=== PATIENT | female | born 1970 | race Caucasian/White ===

== ENCOUNTER 2022-09-28 05:47 | Emergency (ER) | payer OTHER, SELFPAY ==
--- NOTE | ~2022-09-28 | US_ITS ---
EXAMINATION: US VENOUS ULTRASOUND WITH DOPPLER LOWER EXTREMITY, LEFT CLINICAL INFORMATION: Erythema, warmth and tenderness. History of follicular lymphoma COMPARISON: None available. TECHNIQUE: Ultrasound of the deep veins is performed from the hip to the calf with compression sonography and color and pulse Doppler assessment. Spectral analysis with color-flow imaging is performed. FINDINGS: There is acute thrombus visualized in the greater saphenous vein, and the area of focal tenderness and redness. The thrombus is approximately 1.6 cm from the superficial femoral and greater saphenous venous junction. The thrombus extends along the greater saphenous vein inferiorly to the distal thigh. The common femoral, superficial femoral, popliteal veins are widely patent. Incidental note is made of numerous enlarged lymph nodes abnormal in the groin. The largest lymph node left groin is 4.5 x 1.6 x 2.4 cm. second largest lymph node is 3.8 x 1.7 x 3.6 cm. No Dee's cyst seen. If the patient's symptoms persist, followup ultrasound in 5 days 7 days might be of value to exclude proximal propagation from a non-visualized calf vein. US/US venous duplex LE IMPRESSION: Superficial thrombophlebitis involving the greater saphenous vein 1.6 cm from the junction inferiorly to distal thigh region. The deep veins are widely patent. Abnormal size left groin lymph nodes. These findings may corroborate with history of follicular lymphoma. No Dee's cyst.
[2022-09-28 06:12] VITALS: BP 140/93; PULSE 88; RESP 18; TEMP 36.8; O2SAT 98; BMI 27.2
--- NOTE | 2022-09-28 06:29 | ED.GENADULT ---
HPI - General Adult General Chief complaint: General Medical Stated complaint: swollen lymph nodes? Time Seen by Provider: 09/28/22 06:29 Source: patient Mode of arrival: ambulatory Limitations: no limitations History of Present Illness HPI narrative: 51 yo female with history of low grade follicular lymphoma presents to the ER for evaluation of swollen, tender and reddened area in her left groin and upper thigh area that started 2 days ago. Patient states that 2 nights ago she felt sensation of a charley horse in her left upper thigh, had difficulty getting comfortable. Yesterday morning she noticed that the area of her left upper thigh and left inguinal area was more tender, swollen and erythematous. She reports it is uncomfortable to walk. She denies any trauma. She denies any fever or chills. She has occasional night sweats which are common with her diagnosis of follicular lymphoma. She states she follows with Dr. Armenta at [facility]. She is not currently on any treatment because her cancer is low-grade. She gets blood work monitored frequently. She last saw her oncologist 3 weeks ago. MD complaint: Erythematous, tender lymph node in the proximal left thigh Onset (ago): day(s) (2) Location: left and lower extremity Radiation: distal Severity: moderate Severity scale (1-10): 6 Quality: aching and dull Pain Consistency: constant Relieving factors: rest Exacerbating factors: movement Associated symptoms: denies other symptoms Treatments prior to arrival: none Related Data Allergies Allergy/AdvReac Type Severity Reaction Status Date / Time No Known Allergies Allergy Verified 09/28/22 06:17 Review of Systems Review of Systems: Yes all other systems are reviewed and are negative [facility] Social History Social History Alcohol intake: current Alcohol intake frequency: holidays/special occasions only Alcohol type: beer and wine Smoked in Last 30 Days: No Use of substances other than those prescribed or required for medical reasons: Yes Substance Use Type: Marijuana Substance Use Frequency: Socially Last Used Substance: Hours (ago) Advance Directives: Yes Advance Directives Information Provided: Yes Advance Directives on File: No Patient : No Physical Exam ED Vital Signs: Vital Signs - 24 hr 09/28/22 06:12 09/28/22 06:34 09/28/22 07:13 Temperature 98.2 F 98.3 F Pulse Rate 88 79 81 Respiratory Rate 18 16 18 Blood Pressure 140/93 H 104/67 102/69 Pulse Oximetry 98 96 98 Oxygen Delivery Method Room Air Room Air BiPAP Room Air 09/28/22 08:18 Temperature Pulse Rate 66 Respiratory Rate 18 Blood Pressure 153/66 H Pulse Oximetry Oxygen Delivery Method BMI result Body Mass Index 27.2 Appearance: Alert. Oriented X3. No acute distress. HEENT: normal inspection CVS: Normal heart rate and rhythm. Pulses normal. Respiratory: No respiratory distress. Skin: Skin warm and dry. Normal skin color. Normal skin turgor. No rashes. Extremities: left proximal thigh with a large area (approx 15cm x 7cm) of erythema, warmth, tenderness and palpable mass proximally, no fluctuance. + bilateral inguinal lymphadenopathy Neuro: Oriented X 3. No motor deficit. No sensory deficit. Medical Decision Making Medical Decision Making [facility] Narrative: 51-year-old female with history of low-grade follicular lymphoma that was diagnosed within the last 6 months, not currently on any treatment who follows with [facility] presents to the ER for evaluation of a erythematous, swollen, tender area of her left proximal thigh for the last 2 days. No trauma. Lab work is unremarkable, normal CBC and white blood cell count. She has mild thrombocytopenia. Ultrasound of the area showed superficial thrombophlebitis. Will treat accordingly. Patient is due to fly to [facility] tomorrow so will start her on full-dose aspirin as well. We discussed NSAIDs, warm compresses and elevation. She will monitor closely, treat symptoms and follow-up with her oncologist when she returns. Patient is stable for discharge home. Differential Diagnosis Differential Diagnoses: The differential diagnosis associated with the presentation includes Cellulitis, lymphangitis, superficial thrombophlebitis, abscess, lymphadenopathy due to follicular lymphoma Lab Data [facility] Lab Attestation statement: I reviewed the patient's lab results. Mild thrombocytopenia 09/28/22 06:27 09/28/22 06:27 Labs: Lab Results 09/28/22 09/28/22 09/28/22 Range/Units 06:27 06:27 06:27 WBC 6.2 (4.8-10.8) X10*3/uL RBC 4.67 (4.20-5.50) X10*6/uL Hgb 14.1 (12.0-16.0) g/dl Hct 41.6 (37.0-47.0) % MCV 89.1 (80.0-98.0) fL MCH 30.2 (27.0-33.0) pg MCHC 33.9 (31.0-35.0) g/dl RDW 12.3 (11.0-16.0) % Plt Count 125 L (160-400) X10*3/uL MPV 11.3 (9.4-12.3) fL Immature Gran % (Auto) 0.2 (0.0-0.4) % Neut % (Auto) 65.6 (45-73) % Lymph % (Auto) 22.9 (20-40) % [place] % (Auto) 7.6 (2-11) % Eos % (Auto) 2.7 (0-4) % Baso % (Auto) 1.0 (0-2) % Lymph # (Auto) 1.4 (1.2-4.9) X10*3/uL [place] # (Auto) 0.5 (0.1-1.2) X10*3/uL Eos # (Auto) 0.2 (0.0-0.4) X10*3/uL Baso # (Auto) 0.1 (0.0-0.2) X10*3/uL Abs Immat Gran (auto) 0.01 (0.00-0.03) X10*3/uL Absolute Neuts (auto) 4.1 (2.0-8.3) x10*3/uL Absolute Nucleated RBC 0.000 (0.0-0.012) X10*3/uL Nucleated RBC % (auto) 0.0 (0.0-0.2) /100WBC Sodium 141 (135-145) mmol/L Potassium 4.4 (3.3-5.1) mmol/L Chloride 108 (96-108) mmol/L Carbon Dioxide 25 (22-29) mmol/L Anion Gap 12 (12-20) BUN 13 (9-16) mg/dL Creatinine 0.69 (0.5-1.4) mg/dL Estim Creat Clear Calc 88.2 Estimated GFR > 60 Random Glucose 101 (60-115) mg/dL Lactic Acid 0.6 (0.5-2.0) mmol/L Calcium 9.5 (8.4-10.2) mg/dL Total Bilirubin 0.5 (0.0-1.0) mg/dL AST 15 (5-31) U/L ALT 14 (0-31) U/L Alkaline Phosphatase 78 (39-117) U/L Total Protein 6.6 (6.5-8.0) g/dL Albumin 4.3 (3.5-5.0) g/dL Independent Interpretation I performed an independent interpretation of an: Ultrasound Interpretation: No DVTs appreciated, agree with radiologist's read. Radiology Impression Discussion of test interpretation with radiology: I have reviewed the radiologist's reading. Radiologist Impression: US/US venous duplex LE LT IMPRESSION: Superficial thrombophlebitis involving the greater saphenous vein 1.6 cm from the junction inferiorly to distal thigh region. ? The deep veins are widely patent. ? Abnormal size left groin lymph nodes. These findings may corroborate with history of follicular lymphoma. ? No Dee's cyst. Prescription Management I considered prescription management with: Antibiotic Considered antibiotic for possible cellulitis of ultrasound was unremarkable. Chronic Conditions Patient?s care impacted by: Other (Follicular lymphoma) Critical Care Time Critical Care Time Critical Care Time: No Discharge Plan Discharge Clinical Impression: Superficial thrombophlebitis Patient Disposition: Home, Self-Care Instructions: Superficial Thrombophlebitis (ED) Additional Instructions: Your ultrasound today showed superficial thrombophlebitis. This is inflammation and tiny clots and a small vessel. Treatment is anti-inflammatories like Motrin or Aleve along with full-dose aspirin 325 mg once per day. Use heat to the area for 20 minutes at a time, several times per day. Elevate your legs when possible. Follow-up with your oncologist when you get back from your trip. If you develop new or worsening symptoms call 911 or come back to the ER for further evaluation. US/US venous duplex LE LT IMPRESSION: Superficial thrombophlebitis involving the greater saphenous vein 1.6 cm from the junction inferiorly to distal thigh region. ? The deep veins are widely patent. ? Abnormal size left groin lymph nodes. These findings may corroborate with history of follicular lymphoma. Interventions: ED Discharge Assessment Last Done: 09/28/22 09:32
[2022-09-28 06:34] VITALS: BP 104/67; PULSE 79; RESP 16; TEMP 36.8; O2SAT 96
[2022-09-28 06:36] LABS: MANUAL DIFF FLAG NO
[2022-09-28 06:40] LABS: Basophils Absolute Auto 0.1 X10*3/uL (0.0-0.2); Eosinophils Absolute Auto 0.2 X10*3/uL (0.0-0.4); Eosinophils Percent Auto 2.7 % (0-4); Hematocrit 41.6 % (37.0-47.0); Hemoglobin 14.1 g/dl (12.0-16.0); Imm Gran Abs Auto 0.01 X10*3/uL (0.00-0.03); Imm Gran Pct Auto 0.2 % (0.0-0.4); Lymphocytes Absolute Auto 1.4 X10*3/uL (1.2-4.9); Lymphocytes Percent Auto 22.9 % (20-40); Mean Corpuscular HGB Conc 33.9 g/dl (31.0-35.0); Mean Corpuscular Hemoglobin 30.2 pg (27.0-33.0); Mean Corpuscular Volume 89.1 fL (80.0-98.0); Mean Platelet Volume 11.3 fL (9.4-12.3); Monocytes Absolute Auto 0.5 X10*3/uL (0.1-1.2); Monocytes Percent Auto 7.6 % (2-11); Neutrophils Absolute Auto 4.1 x10*3/uL (2.0-8.3); Neutrophils Percent Auto 65.6 % (45-73); Platelet Count 125 X10*3/uL (160-400); Red Blood Count 4.67 X10*6/uL (4.20-5.50); Red Cell Distribution Width 12.3 % (11.0-16.0); White Blood Count 6.2 X10*3/uL (4.8-10.8)
[2022-09-28 06:49] LABS: Lactic Acid 0.6 mmol/L (0.5-2.0)
[2022-09-28 06:53] LABS: Alanine Aminotransferase 14 U/L (0-31); Albumin Level 4.3 g/dL (3.5-5.0); Alkaline Phosphatase 78 U/L (39-117); Anion Gap 12 (12-20); Aspartate Amino Transferase 15 U/L (5-31); Bilirubin Total 0.5 mg/dL (0.0-1.0); Blood Urea Nitrogen 13 mg/dL (9-16); Calcium 9.5 mg/dL (8.4-10.2); Carbon Dioxide 25 mmol/L (22-29); Chloride 108 mmol/L (96-108); Creatinine Clr Calc Pharmacy 88.2; Estimated Glomerular Filt Rate > 60; Glucose Random 101 mg/dL (60-115); Potassium 4.4 mmol/L (3.3-5.1); Sodium 141 mmol/L (135-145); Total Protein 6.6 g/dL (6.5-8.0)
[2022-09-28 07:13] VITALS: BP 102/69; PULSE 81; RESP 18; O2SAT 98
--- NOTE | 2022-09-28 07:14 | PC.NURSE ---
Alert and oriented. states 3/10 pain in left thigh. States woke up this morning and area had worsened. No sob or chest pain.
[2022-09-28 08:18] VITALS: BP 153/66; PULSE 66; RESP 18
--- NOTE | 2022-09-28 08:19 | PC.NURSE ---
Area to left inner thigh pink, warm and tender to touch. Area slightly raised. No open area or drainage from site.
--- NOTE | 2022-09-28 09:33 | PC.NURSE ---
Discharge instructions reviewed with patient who verbalized understanding
== END 2022-09-28 09:34 | disposition home or self-care (01) ==
PROVIDERS: Emergency Provider Emergency Medicine; PCP Internal Medicine
DX: I80.9 Phlebitis and thrombophlebitis of unspecified site (principal); R60.0 Localized edema; Z79.899 Other long term (current) drug therapy
CPT/HCPCS: 36415; 80053; 83605; 85025; 93971; 99284